=== PATIENT | female | born 1960 | race Caucasian/White ===

== ENCOUNTER → 2017-03-23 | Outpatient (CLI) | payer OTHER ==
[~2017-03-23] MED LIST: CALC-106 PO; EVEN1000 PO; FISH1000 PO; FLUO0.0114 OT; FLUO25OI EXT; IBUP600T26 PO; METO25TA74 PO; METR0.7533 PV; REFR1DRO8 OU; VITA500046 PO; VITACAP8 PO; XANA0.25 PO; ZOFR20TA PO; [UNRECOGNIZED DRUG - CODE] PO; drenamin PO
--- NOTE | 2017-03-23 17:09 | ECGEPIP ---
Stationary ECG Study [facility] Test Date: 2017-03-23 Pat Name: SARAH MELENDEZ Department: Room: - Gender: F Property Claims Manager: SANTO : 1960 Requested By: GRANT Tang Order Number: [id number] Reading MD: Amanda Nolan Measurements Intervals [place] Rate: 71 P: 68 NE: 144 QRS: 73 QRSD: 77 T: 50 QT: 392 QTc: 426 Interpretive Statements SINUS RHYTHM NORMAL NO PRIOR Electronically Signed On 03-23-2017 17:08:58 EDT by Amanda Nolan
== END ==
LOC: M EKG 15:08
PROVIDERS: ATTEND Anesthesiology
DX: Z01.818 Encounter for other preprocedural examination (principal); J34.2 Deviated nasal septum; I34.0 Nonrheumatic mitral (valve) insufficiency

== ENCOUNTER → 2017-03-26 | Day surgery (SDC) | payer OTHER ==
[~2017-03-26] VITALS: Ht 157.5 cm; Wt 47.6 kg
[~2017-03-26] MED LIST changes: +LIDOCAINE 2% INJ 100 MG/5 ML SDV (FOR ANES.) As Ordered ONE; +LIDOCAINE W/EPINEPHRINE 1% 20ML VIAL As Ordered ONE; +LR 1,000 ML IV SCH; +MIDAZOLAM INJ 2 MG/2 ML VIAL (J2250) As Ordered ONE; +ONDANSETRON 4MG/2ML VIAL (J2405) As Ordered ONE; +OXYMETAZOLINE NASAL SPRAY (AFRIN) As Ordered ONE; +PERCOCET 5MG/325MG TAB PO PRN; +PHENYLephrine HCL 500 MCG/5 ML (100MCG/ML) SYRINGE (J2370) As Ordered ONE; +PROPOFOL 200 MG/20 ML VIAL As Ordered ONE; +ROCURONIUM BROMIDE 50 MG/5 ML VIAL As Ordered ONE; +SUCCINYLCHOLINE 100 MG/5 ML SYRINGE (J0330) As Ordered ONE; +dexameTHASONE 4 MG/ML 1ML VIAL (J1100) As Ordered ONE; +ePHEDrine SULFATE 25 MG/5 ML(5MG/ML) SYRINGE As Ordered ONE; +fentaNYL 100 MCG/2 ML INJECTION (J3010) IV PRN; +fentaNYL 250 MCG/5 ML INJECTION (J3010) As Ordered ONE
[2017-03-26 12:30] LABS: CONTROL LINE UCG INT CTR LINE PRESENT
[2017-03-26 18:13] VITALS: BP 141/82
--- NOTE | 2017-03-27 19:47 | RO ---
DATE OF PROCEDURE: 03/26/2017 PREPROCEDURE DIAGNOSES: 1. Deviated septum. 2. Chronic rhinitis. POSTPROCEDURE DIAGNOSES: 1. Deviated septum. 2. Chronic rhinitis. OPERATIVE PROCEDURE: Septoplasty. Partial reduction of inferior turbinates. SURGEON: Adam Broussard MD SLD INCLUSION TEACHER: ANESTHESIA: INDICATION: A 56-year-old with a long history of nasal obstruction much worse on the right side. DESCRIPTION OF PROCEDURE: After satisfactory general endotracheal anesthesia administrated, a pharyngeal pack was placed, the nose was prepared for surgery by placing cotton-soaked pledgets with Afrin solution into the nasal cavity bilaterally, 1% Xylocaine with 1:1000,00 epinephrine was injected in the left nasal septum and inferior turbinates. A Sanjay incision was made on the left side of the nose. A mucoperichondrial flap and envelope was created on the left side of the nasal septum and carried down to the junction of the bony and cartilaginous septum. This was then with an elevator, and an envelope was then created on the right side of the septum. A Bianca scissors was used to make a cut high in the perpendicular plate in the midportion of the vomer, and a central segment of the bony septum was resected. Next, with the round knife on the Bartow elevator, a strip of cartilage was resected from the floor of the nose, mobilizing the quadrilateral cartilage and creating a swinging door. Then, a central segment of cartilaginous septum was resected, preserving a 1 cm dorsal and caudal strut. Double-action rongeur was used to take down deflected portions of the perpendicular plate, as well. Finally, the maxillary crest spur was taken down after elevating mucoperiosteum off both sides of it with a chisel. A segment of the resected cartilage was morselized and placed back into the septal envelope. The incision was closed using an interrupted #5-0 chromic suture. Then, a #4-0 plain suture was placed in a aeki-yec-ichbp fashion through the two leaves of mucoperichondrium to appose them. Next, the inferior turbinates were medially infractured. A #15 blade was used to make an incision on the anterior tip of the inferior turbinate. With a Molly elevator, a mucoperiosteal tunnel was created on the medial side of the turbinate. Then, the microdebrider with a 2.9 mm blade was inserted into the tunnel, and the underlying turbinate bone was weakened and partially resected using the microdebrider. Then, the turbinate was laterally outfractured. The posteroinferior tip of the turbinate was then cauterized with suction cautery. Finally, Trinidad splints were placed into the nose and sewn to the columella with a #2-0 Prolene suture. The pharyngeal pack, which had been placed at the beginning of the procedure was removed, the throat was suctioned. The patient was then awakened, extubated, and sent to recovery in satisfactory condition. She will discharged home on Percocet for pain and doxycycline 100 mg twice a day. She will seen back in the office in one week.
== END ==
LOC: M SDC 10:56
PROVIDERS: ATTEND Specialist
DX: J34.2 Deviated nasal septum (principal); J31.0 Chronic rhinitis; R00.2 Palpitations; I34.0 Nonrheumatic mitral (valve) insufficiency; M46.92 Unspecified inflammatory spondylopathy, cervical region; G43.909 Migraine, unspecified, not intractable, without status migrainosus; Z87.891 Personal history of nicotine dependence; Z88.8 Allergy status to other drugs, medicaments and biological substances; Z79.899 Other long term (current) drug therapy
CPT/HCPCS: 30130; 30520; 84703; 88300; J0330; J1100; J2250; J2370; J2405; J3010

== ENCOUNTER 2023-04-28 09:38 | Emergency (ER) | payer OTHER, SELFPAY ==
[~2023-04-28] VITALS: Ht 154.9 cm; Wt 50.3 kg
[~2023-04-28 09:38] MED LIST changes: +IBUP-1022 PO; -IBUP600T26 PO; -LIDOCAINE 2% INJ 100 MG/5 ML SDV (FOR ANES.) As Ordered ONE; -LIDOCAINE W/EPINEPHRINE 1% 20ML VIAL As Ordered ONE; -LR 1,000 ML IV SCH; +METO1TAB32 PO; -METO25TA74 PO; +METR0.7526 PV; -METR0.7533 PV; -MIDAZOLAM INJ 2 MG/2 ML VIAL (J2250) As Ordered ONE; -ONDANSETRON 4MG/2ML VIAL (J2405) As Ordered ONE; -OXYMETAZOLINE NASAL SPRAY (AFRIN) As Ordered ONE; -PERCOCET 5MG/325MG TAB PO PRN; -PHENYLephrine HCL 500 MCG/5 ML (100MCG/ML) SYRINGE (J2370) As Ordered ONE; -PROPOFOL 200 MG/20 ML VIAL As Ordered ONE; -ROCURONIUM BROMIDE 50 MG/5 ML VIAL As Ordered ONE; -SUCCINYLCHOLINE 100 MG/5 ML SYRINGE (J0330) As Ordered ONE; -ZOFR20TA PO; +ZOFR4TAB16 PO; -dexameTHASONE 4 MG/ML 1ML VIAL (J1100) As Ordered ONE; -ePHEDrine SULFATE 25 MG/5 ML(5MG/ML) SYRINGE As Ordered ONE; -fentaNYL 100 MCG/2 ML INJECTION (J3010) IV PRN; -fentaNYL 250 MCG/5 ML INJECTION (J3010) As Ordered ONE
[2023-04-28] MEDS ORDERED: SPIR50TA4 PO (10:02)
[2023-04-28] MEDS ORDERED: NS 1,000 ML IV ONE (10:30)
[2023-04-28] MEDS ORDERED: ONDANSETRON 4MG 2ML VIAL IV ONE (10:30)
[2023-04-28] MEDS ORDERED: KETOROLAC 30 MG/ML 1ML VIAL IV ONE (10:30)
[2023-04-28 11:01] LABS: BASO % 0.3 % (0.0-1.0); HEMATOCRIT 38.4 % (36.0-47.0); HEMOGLOBIN 13.4 g/dl (12.0-15.5); LYMPH # 0.5 10^3/uL (1.5-5.0); MEAN CORPUSCULAR HEMOGLOBIN 31.9 pg (27.0-33.0); MEAN CORPUSCULAR HGB CONC 34.9 g/dl (32.0-36.5); MEAN CORPUSCULAR VOLUME 91.4 fl (80.0-96.0); MONO # 0.4 10^3/uL (0.0-0.8); MONO % 5.7 % (2.0-8.0); NEUTROPHILS # 6.1 10^3/uL (1.5-8.5); NEUTROPHILS % 86.7 % (36.0-66.0); PLATELET COUNT, AUTOMATED 173 10^3/uL (150-450)
[2023-04-28] MEDS ORDERED: ISOVUE-370 76% 100ML VIAL As Ordered ONE (11:02)
[2023-04-28 11:24] LABS: ALBUMIN 4.1 G/DL (3.2-5.2); BILIRUBIN,DIRECT 0.1 MG/DL (<0.4); BILIRUBIN,TOTAL 0.5 MG/DL (0.3-1.2); TOTAL PROTEIN 6.9 G/DL (5.7-8.2)
[2023-04-28] MEDS ORDERED: POTASSIUM CHLORIDE 10MEQ SR TABLET PO ONE (12:45)
[2023-04-28] MEDS ORDERED: ONDA4TAB6 PO (13:22)
[2023-04-28] MEDS ORDERED: KETO10TAB PO (13:22)
[2023-04-28] MEDS ORDERED: ZITH500T PO (13:22)
[2023-04-28 13:35] VITALS: BP 121/72; TEMP 98.4; O2SAT 98
== END 2023-04-28 13:41 | disposition home or self-care (01) ==
LOC: M ED 09:38
DX: A04.5 Campylobacter enteritis (principal); R19.7 Diarrhea, unspecified; K57.90 Diverticulosis of intestine, part unspecified, without perforation or abscess without bleeding; I10 Essential (primary) hypertension; Z88.6 Allergy status to analgesic agent; Z79.899 Other long term (current) drug therapy
CPT/HCPCS: 74177; 80047; 80076; 83605; 83690; 85025; 87507; 96374; 96375; 99284; J1885; J2405; Q9967